=== PATIENT | male | born 1975 | race Caucasian/White ===

== ENCOUNTER 2017-05-13 18:07 | Emergency (ER) | payer MEDICAID ==
[2017-05-13 18:24] VITALS: BP 128/84; PULSE 89; TEMP 98.7; BMI 28.8
--- NOTE | 2017-05-13 19:07 | ED PDOC ---
Arrival/HPI - General Chief Complaint: Dental Pain Time Seen by Provider: 05/13/17 18:39 Historian: Patient - History of Present Illness Narrative History of Present Illness (Text): 05/13/17 19:24 41 yo M presents with sores to the R side corner of his mouth for the past 3 days. States that he has had similar episodes in the past. Denies any rash, fever, chills, headache, ear pain, sore throat, URI symptoms. Otherwise has no other complaints. PMD Saleeb Past Medical History - Provider Review Nursing Documentation Reviewed: Yes - Infectious Disease Hx of Infectious Diseases: None - Tetanus Immunization Tetanus Immunization: Unknown - Past Medical History Past Medical History: No Previous - Cardiac Hx Cardiac Disorders: Yes - Pulmonary Hx Respiratory Disorders: No - Neurological Hx Neurological Disorder: No - HEENT Hx HEENT Disorder: No - Renal Hx Renal Disorder: No - Endocrine/Metabolic Hx Endocrine Disorders: No - Hematological/Oncological Hx Blood Disorders: No - Integumentary Hx Dermatological Disorder: No - Musculoskeletal/Rheumatological Hx Musculoskeletal Disorders: No - Gastrointestinal Hx Gastrointestinal Disorders: No - Genitourinary/Gynecological Hx Genitourinary Disorders: No - Psychiatric Hx Psychophysiologic Disorder: No Hx Substance Use: No - Past Surgical History Past Surgical History: No Previous - Anesthesia Hx Anesthesia: No Hx Anesthesia Reactions: No Hx Malignant Hyperthermia: No - Suicidal Assessment Feels Threatened In Home Enviroment: No Family/Social History - Physician Review Nursing Documentation Reviewed: Yes Family/Social History: No Known Family HX Smoking Status: Never Smoked Hx Alcohol Use: No Hx Substance Use: No Hx Substance Use Treatment: No Allergies/Home Meds Allergies/Adverse Reactions: Allergies No Known Allergies Allergy (Verified 05/13/17 18:23) Review of Systems - Review of Systems Constitutional: Normal. absent: Fatigue, Weight Change, Fevers ENT: Normal. absent: Hearing Changes, Tinnitus, Sinus Congestion Respiratory: Normal. absent: SOB, Cough, Sputum Musculoskeletal: Normal. absent: Arthralgias, Back Pain, Neck Pain Skin: Normal. absent: Rash, Pruritis, Skin Lesions Physical Exam Vital Signs Reviewed: Yes Vital Signs Temp Pulse Resp BP Pulse Ox 05/13/17 19:20 18 99 05/13/17 18:24 98.7 F 89 16 128/84 98 05/13/17 18:23 98.7 F 89 16 128/84 98 Temperature: Afebrile Blood Pressure: Normal Pulse: Regular Respiratory Rate: Normal Appearance: Positive for: Well-Appearing, Non-Toxic, Comfortable Pain Distress: None Mental Status: Positive for: Alert and Oriented X 3 - Systems Exam Head: Present: Atraumatic, Normocephalic Pupils: Present: PERRL Extroacular Muscles: Present: EOMI Conjunctiva: Present: Normal. No: Injected Ears: Present: Normal, Normal Canal. No: NORMAL TM Mouth: Present: Moist Mucous Membranes, Normal Tounge, Other (several erythematous shallow ulcers in the mucosa of the R upper and lowe lip and the R corner of the lips ). No: Drooling, Trismus Pharnyx: Present: Normal. No: ERYTHEMA, EXUDATE, TONSILS ENLARGED, Peritonsilar Swelling, Uvular Deviation, Muffled/Hoarse Voice, Strider Nose (External): Present: Atraumatic Nose (Internal): Present: Normal Inspection Neck: Present: Normal Range of Motion, Trachea Midline. No: MIDLINE TENDERNESS , Lymphadenopathy Skin: Present: Warm, Dry, Normal Color. No: Rashes Medical Decision Making ED Course and Treatment: 05/13/17 19:02 41 yo M presents with sore to the mouth for the past few days. Based on history and exam, pt is noted to have herpes labialis. Rx provided to the pt, take as prescribed. Instructed to follow up with pmd in 1 -2 days without fail. Return to the ER at any time for any new or worsening symptoms. - PA / [employer] / Resident Statement MD/DO has reviewed & agrees with the documentation as recorded. Disposition/Present on Arrival - Present on Arrival Any Indicators Present on Arrival: No History of DVT/PE: No History of Uncontrolled Diabetes: No Urinary Catheter: No History of Decub. Ulcer: No History Surgical Site Infection Following: CABG - Mediastinitis, None - Disposition Have Diagnosis and Disposition been Completed?: Yes Diagnosis: Herpes labialis Disposition: HOME/ ROUTINE Disposition Time: 18:45 Patient Plan: Discharge Condition: STABLE Discharge Instructions (ExitCare): Mary Alvarez (ED) Print Language: HUNGARIAN Additional Instructions: Follow up with pmd in 1-2 days without fail. Take medication as prescribed. Return to the ER at any time for any new or worsening symptoms. Prescriptions: Docosanol [Abreva] 1 cre TP DAILY #1 cre Famciclovir [Famvir] 1,500 mg PO ONCE #3 tab Naproxen 500 mg PO BID #30 tab Referrals: Vu Cui MD [Primary Care Provider] - Follow up with primary Forms: WORK NOTE
[2017-05-13 19:20] VITALS: RESP 18; O2SAT 99
== END 2017-05-13 19:20 | disposition home or self-care (01) ==
LOC: ED 18:07
DX: B00.1 Herpesviral vesicular dermatitis (principal)

== ENCOUNTER 2017-07-22 14:21 | Emergency (ER) | payer MEDICAID ==
[2017-07-22 14:33] VITALS: BMI 28.3
--- NOTE | 2017-07-22 14:49 | ED PDOC ---
Arrival/HPI - General Chief Complaint: Fever Time Seen by Provider: 07/22/17 14:43 Historian: Patient - History of Present Illness Narrative History of Present Illness (Text): 07/22/17 14:43 41 y/o male, pmh including dm, nkda, c/o coughing and fever x 2 days. Pt. has been having coughing with dry to productive started about 2 days ago, started to have fever this morning associated with the bodyache, no chest pain or shortness of breath, no urinary symptoms, no night sweat, no palpitation, no abdominal pain, no nausea or vomiting, no headache or neck stiffness, no other medical or psychological complaints. Pt. didn't take any antipyretic at home. Past Medical History - Provider Review Nursing Documentation Reviewed: Yes - Infectious Disease Hx of Infectious Diseases: None - Tetanus Immunization Tetanus Immunization: Unknown - Past Medical History Past Medical History: No Previous - Cardiac Hx Cardiac Disorders: Yes - Pulmonary Hx Respiratory Disorders: No - Neurological Hx Neurological Disorder: No - HEENT Hx HEENT Disorder: No - Renal Hx Renal Disorder: No - Endocrine/Metabolic Hx Endocrine Disorders: Yes Hx Diabetes Mellitus Type 2: Yes - Hematological/Oncological Hx Blood Disorders: No - Integumentary Hx Dermatological Disorder: No - Musculoskeletal/Rheumatological Hx Musculoskeletal Disorders: No - Gastrointestinal Hx Gastrointestinal Disorders: No - Genitourinary/Gynecological Hx Genitourinary Disorders: No - Psychiatric Hx Psychophysiologic Disorder: No Hx Substance Use: No - Past Surgical History Past Surgical History: No Previous - Anesthesia Hx Anesthesia: No Hx Anesthesia Reactions: No Hx Malignant Hyperthermia: No - Suicidal Assessment Feels Threatened In Home Enviroment: No Family/Social History - Physician Review Nursing Documentation Reviewed: Yes Family/Social History: Unknown Family HX Smoking Status: Never Smoked Hx Alcohol Use: No Hx Substance Use: No Hx Substance Use Treatment: No Allergies/Home Meds Allergies/Adverse Reactions: Allergies No Known Allergies Allergy (Verified 07/22/17 14:32) Home Medications: Home Meds Medication Instructions Recorded Confirmed MetFORMIN [glucoPHAGE] 500 mg PO BID 07/22/17 07/22/17 Review of Systems - Review of Systems Constitutional: Fatigue, Fevers Eyes: absent: Vision Changes ENT: absent: Hearing Changes Respiratory: Cough, Sputum. absent: SOB, Wheezing Cardiovascular: absent: Chest Pain Gastrointestinal: absent: Abdominal Pain, Diarrhea, Nausea, Vomiting Musculoskeletal: Myalgias. absent: Arthralgias, Back Pain, Neck Pain Skin: absent: Rash, Pruritis Neurological: absent: Headache, Dizziness, Gait Changes, Speech Changes Physical Exam Vital Signs Temp Pulse Resp BP Pulse Ox 07/22/17 17:08 100.4 F H 07/22/17 16:35 100.2 F H 98 H 18 109/66 98 07/22/17 16:08 100.4 F H 07/22/17 14:35 100.6 F H 100 H 18 111/72 97 Temperature: Febrile Blood Pressure: Normal Pulse: Regular Respiratory Rate: Normal Appearance: Positive for: Well-Appearing, Non-Toxic Pain Distress: Mild Mental Status: Positive for: Alert and Oriented X 3 - Systems Exam Head: Present: Atraumatic, Normocephalic Pupils: Present: PERRL Extroacular Muscles: Present: EOMI Conjunctiva: Present: Normal Ears: Present: NORMAL TM, Normal Canal. No: Erythema Mouth: Present: Moist Mucous Membranes Pharnyx: No: ERYTHEMA, EXUDATE, TONSILS ENLARGED, Uvular Deviation, Muffled/ Hoarse Voice, Soft Palate/Uvular Edema Neck: Present: Normal Range of Motion Respiratory/Chest: Present: Clear to Auscultation, Good Air Exchange. No: Respiratory Distress, Accessory Muscle Use, Wheezes, Decreased Breath Sounds, Rales, Retracting, Rhonchi, Tachypneic, Tender to Palpation, Other Cardiovascular: Present: Regular Rate and Rhythm, Normal S1, S2. No: Murmurs Abdomen: Present: Normal Bowel Sounds. No: Tenderness, Distention, Peritoneal Signs, Rebound, Guarding Back: No: CVA Tenderness Upper Extremity: Present: Normal Inspection. No: Cyanosis, Edema Lower Extremity: Present: Normal Inspection. No: Edema Neurological: Present: GCS=15, Speech Normal, Motor Func Grossly Intact, Gait Normal, Memory Normal Skin: Present: Warm, Dry, Normal Color. No: Rashes Psychiatric: Present: Alert, Oriented x 3, Normal Insight, Normal Concentration Medical Decision Making ED Course and Treatment: 07/22/17 14:52 -rapid flu -chest xray -tylenol/toradol 07/22/17 15:32 -rapid flu negative but the patient stated that he feels bodyache and fatigue, labs and IVF ordered. 07/22/17 17:19 -chest xray is negative -labs show no acute findings -Clinically impression is this is likely flu, tamiflu and zithromax ordered. -Pt. feels much better, wants to go home and eat. -Discharge home with zithromax, tamiflu, tylenol, promethazine dm, stay hydrated , follow up with your own pmd within 2 days, return to the ER for any new or worsening signs or symptoms. - Lab Interpretations Lab Results: 07/22/17 16:00 07/22/17 16:00 Lab Results 07/22/17 16:00: WBC 5.3, RBC 4.95, Hgb 13.8 L, Hct 41.8 L, MCV 84.4, MCH 27.9, MCHC 33.0, RDW 13.1, Plt Count 154, MPV 10.9, Gran % 80.6 H, Lymph % (Auto) 11.1 L, [place] % (Auto) 7.7 H, Eos % (Auto) 0.2 L, Baso % (Auto) 0.4, Gran # 4.27 , Lymph # 0.6 L, [place] # 0.4, Eos # 0.0, Baso # 0.02 07/22/17 16:00: Sodium 139, Potassium 3.8, Chloride 102, Carbon Dioxide 25, Anion Gap 16, BUN 19, Creatinine 0.7, Est GFR ( Amer) > 60, Est GFR (Non- Af Amer) > 60, Random Glucose 116 H, Calcium 9.2, Total Bilirubin 0.4, AST 26, ALT 41, Alkaline Phosphatase 110, Total Protein 7.3, Albumin 4.3, Globulin 3.0, Albumin/Globulin Ratio 1.4 07/22/17 14:50: Influenza Typ A,B (EIA) Negative for flu a/b - RAD Interpretation Radiology Orders: 07/22/17 14:49 CHEST TWO VIEWS (PA/LAT) [RAD] Stat - Medication Orders Current Medication Orders: Discontinued Medications Acetaminophen (Tylenol 325mg Tab) 650 mg PO STAT STA Stop: 07/22/17 15:21 Last Admin: 07/22/17 16:08 Dose: 650 mg MAR Pain/Vitals Document 07/22/17 16:08 AB (Rec: 07/22/17 16:16 AB [id number]) Pain Reassessment Is This A Pain ReAssessment? No Vitals Temperature (97.6 F-99.6 F) 100.4 F Re-Assess: YOANDY Pain/Vitals Document 07/22/17 17:08 AB (Rec: 07/22/17 17:15 AB [id number]) Vitals Temperature (97.6 F-99.6 F) 100.4 F Temperature Source Oral Azithromycin (Zithromax) 500 mg PO STAT STA PRN Reason: Protocol Stop: 07/22/17 16:36 Last Admin: 07/22/17 17:08 Dose: 500 mg Sodium Chloride (Sodium Chloride 0.9%) 1,000 mls @ 999 mls/hr IV .Q1H1M STA Stop: 07/22/17 16:21 Last Admin: 07/22/17 16:07 Dose: 999 mls/hr eMAR Start Stop Document 07/22/17 16:07 AB (Rec: 07/22/17 16:07 [id number] Intravenous Solution Start Date 07/22/17 Start Time 16:07 End Date 07/22/17 Ketorolac Tromethamine (Toradol) 30 mg IVP STAT STA Stop: 07/22/17 15:29 Last Admin: 07/22/17 16:06 Dose: 30 mg [facility] Pain Assessment Document 07/22/17 16:06 AB (Rec: 07/22/17 16:07 [id number] Pain Reassessment Is this a pain reassessment? Yes Sleep Is patient sleeping during reassessment? No Presence of Pain Presence of Pain Yes Pain Scale Used Pain Scale Used Numeric Location Pain Location Body Site Generalized Description Description Constant Pain Behavior Moaning Facial Grimacing Aggravating Factors None Alleviating Factors/Management Medication Techniques Alleviating Factors Medication IVP Administration Document 07/22/17 16:06 AB (Rec: 07/22/17 16:07 [id number] Charges for Administration # of IVP Administrations 1 Oseltamivir Phosphate (Tamiflu Cap) 75 mg PO STAT STA PRN Reason: Protocol Stop: 07/22/17 16:36 Last Admin: 07/22/17 17:07 Dose: 75 mg - PA / [employer] LAW CLERK / Resident Statement /DO has reviewed & agrees with the documentation as recorded. Disposition/Present on Arrival - Present on Arrival Any Indicators Present on Arrival: No History of DVT/PE: No History of Uncontrolled Diabetes: No Urinary Catheter: No History of Decub. Ulcer: No History Surgical Site Infection Following: None - Disposition Have Diagnosis and Disposition been Completed?: Yes Diagnosis: Flu-like symptoms, URI (upper respiratory infection) Disposition: HOME/ ROUTINE Disposition Time: 16:39 Patient Plan: Discharge Patient Problems: Current Active Problems Problem Status Onset Flu-like symptoms Acute URI (upper respiratory infection) Acute Condition: IMPROVED Additional Instructions: -Discharge home with zithromax, tamiflu, tylenol, promethazine dm, stay hydrated , follow up with your own pmd within 2 days, return to the ER for any new or worsening signs or symptoms. Prescriptions: Acetaminophen [Tylenol 325mg tab] 2 tab PO QID PRN #30 tab PRN Reason: Other Azithromycin [Zithromax] 250 mg PO DAILY #4 tab Oseltamivir Phosphate [Tamiflu] 75 mg PO BID #9 capsule Promethazine DM [Phenergan DM Syrup] 5 ml PO QID PRN #200 ml PRN Reason: Other Referrals: [facility] [place] - Follow up with primary Forms: [employer] (Luxembourgish), WORK NOTE
[2017-07-22] MEDS ORDERED: Sodium Chloride 0.9% 1,000 ML IV STA (15:21)
--- NOTE | 2017-07-22 16:08 | RAD ---
HISTORY: cough and fever x 2 days COMPARISON: Chest radiograph 12/13/2015. TECHNIQUE: Chest PA and lateral FINDINGS: LUNGS: No active pulmonary disease. PLEURA: No significant pleural effusion identified. No pneumothorax apparent. CARDIOVASCULAR: Normal. OSSEOUS STRUCTURES: No significant abnormalities. VISUALIZED UPPER ABDOMEN: Normal. OTHER FINDINGS: None. IMPRESSION: No acute cardiopulmonary disease or significant interval change appreciated compared 12/13/2015 radiographs.
[2017-07-22 16:22] LABS: BASO # 0.02 K/mm3 (0.0-2.0); BASO % 0.4 % (0.0-3.0); EOS % 0.2 % (1.5-5.0); GRAN # 4.27 (1.4-6.5); GRAN % 80.6 % (50.0-68.0); HEMATOCRIT 41.8 % (42.0-52.0); LYMPH # 0.6 (1.2-3.4); LYMPH % 11.1 % (22.0-35.0); MEAN CELL VOLUME 84.4 fl (80.0-105.0); MEAN CORPUSCULAR HEMOGLOBIN 27.9 pg (25.0-35.0); MEAN PLATELET VOLUME 10.9 fl (7.0-11.0); MONO # 0.4 (0.1-0.6); MONO % 7.7 % (1.0-6.0); RED CELL DISTRIBUTION WIDTH 13.1 % (11.5-14.5); WHITE BLOOD COUNT 5.3 10^3/ul (4.5-11.0)
[2017-07-22 16:30] LABS: ALB/GLOB RATIO 1.4 (1.1-1.8); ALKALINE PHOSPHATASE 110 U/L (38-126); ALT/SGPT 41 U/L (7-56); AST/SGOT 26 U/L (17-59); BILIRUBIN,TOTAL 0.4 mg/dL (0.2-1.3); BLOOD UREA NITROGEN 19 mg/dL (7-21); CALCIUM 9.2 mg/dL (8.4-10.5); CARBON DIOXIDE 25 mmol/L (21-33); CHLORIDE 102 mmol/L (98-107); GFR AFRICAN-AMERICAN > 60; GLUCOSE,RANDOM 116 mg/dL (70-110); POTASSIUM 3.8 mmol/L (3.6-5.0); SODIUM 139 mmol/L (132-148); TOTAL PROTEIN 7.3 g/dL (5.8-8.3)
[2017-07-22 17:24] VITALS: BP 106/61; TEMP 99.1
[2017-07-22 17:38] VITALS: PULSE 88; RESP 19; O2SAT 100
== END 2017-07-22 17:37 | disposition home or self-care (01) ==
LOC: ED 14:21
DX: J11.1 Influenza due to unidentified influenza virus with other respiratory manifestations (principal)
CPT/HCPCS: 71020; 80053; 85025; 87804; 96374; 99284; J1885; J7040